=== PATIENT | female | born 1995 | race American Indian/Alaskan Native ===

== ENCOUNTER 2017-11-19 13:18 | Emergency (ER) | payer BC ==
[2017-11-19 13:25] VITALS: BP 139/75
[2017-11-19 13:50] LABS: HCG Qualitative,Urine Positive (Negative)
[2017-11-19 13:52] LABS: Bilirubin,Urine NEG (Negative); Blood,Urine MOD (Negative); Color,Urine Amber (Yellow); Mucus,Urine FEW /HPF; Protein,Urine <15 mg/dL mg/dL (Negative)
--- NOTE | 2017-11-19 13:54 | Emergency Department Report ---
ED HPI - General Chief complaint: Vaginal Bleeding Stated complaint: 10 WEEKS/SPOTTING Time Seen by Provider: 11/19/17 13:33 Source: patient Mode of arrival: Ambulatory Limitations: No Limitations - History of Present Illness Initial comments: This is a 32-year-old female nontoxic, well nourished in appearance, no acute signs of distress presents to the ED with c/o of vaginal bleeding x1 day. Patient stated yesterday she noticed some intermittent spotting for the past 2 weeks. Patient denies any heavy vaginal bleeding. Patient denies any abdominal or pelvic pain. Patient stated she is about 10 weeks . Patient denies seeing an END POLISHER. Patient denies any vaginal discharge or foul odor. Patient denies any nausea, vomiting, chest pain, shortness of breathe, fever, chills, headache, stiff neck, numbness, tingling. Patient denies any urinary symptoms. Patient stated allergies to Sulfa. Denies any PMH. MD Complaint: vaginal bleeding -: week(s) (2) Radiation: none Severity scale (0 -10): 0 Improves with: none Worsens with: none Associated symptoms: vaginal bleeding. denies: nausea/vomiting, vaginal discharge, abdominal pain, dysuria, headache, vision changes, malaise, dysparuenia, rash, seizure, shortness of breath, syncope, weakness Vaginal bleeding: light :: Yes Number of weeks : 10 Pre- care: none - Related Data Previous Rx's Medication Instructions Recorded Last Taken Type 21/Iron Fu/Folic Acid 1 each PO DAILY #30 tablet 11/19/17 Unknown Rx [ Complete Caplet] Allergies Allergy/AdvReac Type Severity Reaction Status Date / Time Sulfa (Sulfonamide Allergy Unknown Verified 11/19/17 13:25 Antibiotics) ED Review of Systems ROS: Stated complaint: 10 WEEKS/SPOTTING Other details as noted in HPI Constitutional: denies: chills, fever Eyes: denies: eye pain, eye discharge, vision change ENT: denies: ear pain, throat pain Respiratory: denies: cough, shortness of breath, wheezing Cardiovascular: denies: chest pain, palpitations Endocrine: no symptoms reported Gastrointestinal: denies: abdominal pain, nausea, diarrhea Genitourinary: abnormal menses. denies: urgency, dysuria, discharge Musculoskeletal: denies: back pain, joint swelling, arthralgia Skin: denies: rash, lesions Neurological: denies: headache, weakness, paresthesias Psychiatric: denies: anxiety, depression Hematological/Lymphatic: denies: easy bleeding, easy bruising ED Past Medical Hx - Past Medical History Previous Medical History?: No - Surgical History Past Surgical History?: Yes Additional Surgical History: tonsilectomy - Social History Smoking Status: Never Smoker Substance Use Type: None - Medications Home Medications: Home Medications Medication Instructions Recorded Confirmed Last Taken Type 21/Iron Fu/Folic Acid 1 each PO DAILY #30 tablet 11/19/17 Unknown Rx [ Complete Caplet] ED Physical Exam - General Limitations: No Limitations General appearance: alert, in no apparent distress - Head Head exam: Present: atraumatic, normocephalic - Eye Eye exam: Present: normal appearance Pupils: Present: normal accommodation - ENT ENT exam: Present: normal exam, mucous membranes moist - Neck Neck exam: Present: normal inspection, full ROM - Respiratory Respiratory exam: Present: normal lung sounds bilaterally. Absent: respiratory distress, wheezes, rales, rhonchi, stridor, chest wall tenderness, accessory muscle use, decreased breath sounds, prolonged expiratory - Cardiovascular Cardiovascular Exam: Present: regular rate, normal rhythm, normal heart sounds. Absent: irregular rhythm, systolic murmur, diastolic murmur, rubs, gallop - GI/Abdominal GI/Abdominal exam: Present: soft, normal bowel sounds. Absent: distended, tenderness, guarding, rebound, rigid, diminished bowel sounds - Rectal Rectal exam: Present: deferred - Extremities Exam Extremities exam: Present: normal inspection, full ROM, normal capillary refill - Back Exam Back exam: Present: normal inspection, full ROM. Absent: tenderness, CVA tenderness (R), CVA tenderness (L), muscle spasm, paraspinal tenderness, vertebral tenderness, rash noted - Neurological Exam Neurological exam: Present: alert, oriented X3, normal gait - Psychiatric Psychiatric exam: Present: normal affect, normal mood - Skin Skin exam: Present: warm, dry, intact, normal color. Absent: rash ED Course Vital Signs 11/19/17 13:21 Temperature 97.6 F Pulse Rate 92 H Respiratory 16 Rate Blood Pressure 139/75 O2 Sat by Pulse 100 Oximetry - Reevaluation(s) Reevaluation #1: 11/19/17 13:59 Patient is speaking in full sentences with no signs of distress noted. ED Medical Decision Making - Lab Data Result diagrams: 11/19/17 13:42 - Medical Decision Making This is a 22-year-old female presents with threatened miscarriage. Patient is stable and was examined by me. Normal abdominal exam. US OB obtained and dictated by the radiologist. Ua obtained. Quantative serum test obtained. Patient notified of the US report with no questions noted by the patient. RH factor negative. Patient received Rhogam in the ED. Labs within normal limits. Patient was referred to Follow-up with a END POLISHER in 3-5 days or if symptoms worsen and continue return to emergency room as soon as possible. At time of discharge, the patient does not seem toxic or ill in appearance. No acute signs of distress noted. Patient agrees to discharge treatment plan of care. No further questions noted by the patient. Critical care attestation.: If time is entered above; I have spent that time in minutes in the direct care of this critically ill patient, excluding procedure time. ED Disposition Clinical Impression: Threatened miscarriage Rh negative status during Qualifiers: Trimester: first trimester Qualified Code(s): O09.891 - Supervision of other high risk pregnancies, first trimester; Z67.91 - Unspecified blood type, Rh negative Disposition: DC-01 TO HOME OR SELFCARE Is pt being admited?: No Does the pt Need Aspirin: No Condition: Stable Instructions: Rho(D) Immune Globulin (Injection), (ED) Additional Instructions: Follow-up with a END POLISHER in 3-5 days or if symptoms worsen and continue return to emergency room as soon as possible. You have received Rhogam today in the ED. 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 Prescriptions: 21/Iron Fu/Folic Acid [ Complete Caplet] 1 each PO DAILY #30 tablet Referrals: PRIMARY CAREMD [Primary Care Provider] - 3-5 Days MARIUM DENNIS MD [Staff Physician] - 3-5 Days [facility] [Outside] - 3-5 Days [facility] [Provider Group] - 3-5 Days Forms: Work/School Release Form(ED)
[2017-11-19 14:01] LABS: Basophils # (Auto) 0.1 K/mm3 (0.0-0.1); Basophils % (Auto) 0.7 % (0.0-1.8); Eosinophils % (Auto) 0.3 % (0.0-4.3); Hematocrit 37.4 % (30.3-42.9); Hemoglobin 12.3 gm/dl (10.1-14.3); Lymphocytes # (Auto) 4.4 K/mm3 (1.2-5.4); Mean Corpuscular HGB Conc 33 % (30-34); Mean Corpuscular Hemoglobin 27 pg (28-32); Mean Corpuscular Volume 83 fl (79-97); Monocytes # (Auto) 0.9 K/mm3 (0.0-0.8); Monocytes % (Auto) 6.7 % (0.0-7.3); Platelet Count 437 K/mm3 (140-440); Red Blood Count 4.54 M/mm3 (3.65-5.03); Red Cell Distribution Width 15.8 % (13.2-15.2)
--- NOTE | 2017-11-19 15:01 | Ultrasound Report ---
ULTRASOUND PELVIC COMPLETE ULTRASOUND TRANSVAGINAL HISTORY: Vaginal bleeding. COMPARISON: None. TECHNIQUE: Transabdominal and transvaginal ultrasound with color doppler interrogation. FINDINGS: Uterus: 10 x 6 x 7 cm. No uterine masses identified. Normal cervix. Endometrium: An intrauterine gestational sac containing a fetus is identified. Heart rate measures 165 beats per minute. Estimated age of ultrasound is 10 weeks 2 days. Estimated due date of 06/17/18. Right ovary: 3.2 x 3.0 x 3.1 cm. A 2.1 cm simple cyst is noted in the right ovary. Left ovary: 2.9 x 1.8 x 2.2 cm. No focal abnormality. No pelvic fluid or mass is identified. Normal color doppler interrogation. IMPRESSION: Viable, single intrauterine as described. No acute abnormality is detected. 2.1 cm right ovarian cyst.
== END 2017-11-19 16:44 | disposition home or self-care (01) ==
LOC: ED 13:18
DX: O20.0 Threatened abortion (principal); O09.891 Supervision of other high risk pregnancies, first trimester; Z67.91 Unspecified blood type, Rh negative; Z3A.10 10 weeks gestation of pregnancy; Z90.89 Acquired absence of other organs; Z88.1 Allergy status to other antibiotic agents
CPT/HCPCS: 36415; 36430; 76801; 76817; 81001; 81025; 84702; 85025; 85461; 86850; 86900; 86901; 99284; J2790

== ENCOUNTER 2017-11-21 06:50 | Emergency (ER) | payer BC ==
[2017-11-21 07:40] LABS: Basophils # (Auto) 0.1 K/mm3 (0.0-0.1); Basophils % (Auto) 0.5 % (0.0-1.8); Eosinophils % (Auto) 0.1 % (0.0-4.3); Hematocrit 34.8 % (30.3-42.9); Hemoglobin 11.7 gm/dl (10.1-14.3); Lymphocytes # (Auto) 1.8 K/mm3 (1.2-5.4); Lymphocytes % (Auto) 11.3 % (13.4-35.0); Mean Corpuscular HGB Conc 34 % (30-34); Mean Corpuscular Hemoglobin 28 pg (28-32); Mean Corpuscular Volume 82 fl (79-97); Monocytes # (Auto) 0.8 K/mm3 (0.0-0.8); Monocytes % (Auto) 4.9 % (0.0-7.3); Platelet Count 439 K/mm3 (140-440); Red Blood Count 4.26 M/mm3 (3.65-5.03); Red Cell Distribution Width 15.7 % (13.2-15.2)
--- NOTE | 2017-11-21 07:48 | Emergency Department Report ---
ED Female HPI - General Chief complaint: Vaginal Bleeding Stated complaint: MISCARRIAGE Time Seen by Provider: 11/21/17 07:47 Source: patient Mode of arrival: Ambulatory Limitations: No Limitations - History of Present Illness MD Complaint: vaginal bleeding -: Gradual Location: perineum Radiation: suprapubic Severity: moderate Severity scale (0 -10): 6 Quality: cramping, dull Consistency: constant Improves with: none Worsens with: none Are you Now?: Yes Associated Symptoms: vaginal bleeding - Related Data Previous Rx's Medication Instructions Recorded Last Taken Type 21/Iron Fu/Folic Acid 1 each PO DAILY #30 tablet 11/19/17 Unknown Rx [ Complete Caplet] HYDROcodone/APAP 7.5-325 [[place] 1 each PO Q8HR PRN #10 tablet 11/21/17 Unknown Rx 7.5/325] Allergies Allergy/AdvReac Type Severity Reaction Status Date / Time Sulfa (Sulfonamide Allergy Unknown Verified 11/19/17 13:25 Antibiotics) ED Review of Systems ROS: Stated complaint: MISCARRIAGE Other details as noted in HPI Comment: All other systems reviewed and negative Constitutional: denies: chills, fever Eyes: denies: eye pain ENT: denies: ear pain, throat pain Respiratory: denies: cough, orthopnea, shortness of breath Cardiovascular: denies: chest pain, palpitations, dyspnea on exertion Endocrine: no symptoms reported Gastrointestinal: abdominal pain. denies: nausea, vomiting, diarrhea Genitourinary: denies: urgency, dysuria, frequency Musculoskeletal: denies: back pain, joint swelling Skin: denies: rash, lesions Neurological: denies: headache, weakness, numbness Psychiatric: denies: anxiety, depression Hematological/Lymphatic: denies: easy bleeding, easy bruising ED Past Medical Hx - Past Medical History Previous Medical History?: No - Surgical History Past Surgical History?: Yes Additional Surgical History: tonsilectomy - Social History Smoking Status: Current Every Day Smoker Substance Use Type: Alcohol - Medications Home Medications: Home Medications Medication Instructions Recorded Confirmed Last Taken Type 21/Iron Fu/Folic Acid 1 each PO DAILY #30 tablet 11/19/17 Unknown Rx [ Complete Caplet] HYDROcodone/APAP 7.5-325 [[place] 1 each PO Q8HR PRN #10 tablet 11/21/17 Unknown Rx 7.5/325] ED Physical Exam - General Limitations: No Limitations General appearance: alert, in no apparent distress - Head Head exam: Present: atraumatic, normocephalic, normal inspection - Eye Eye exam: Present: normal appearance, PERRL, EOMI Pupils: Present: normal accommodation - ENT ENT exam: Present: normal exam, normal orophraynx, mucous membranes moist - Neck Neck exam: Present: normal inspection, full ROM. Absent: tenderness - Respiratory Respiratory exam: Present: normal lung sounds bilaterally. Absent: respiratory distress, wheezes, rales, rhonchi, stridor - Cardiovascular Cardiovascular Exam: Present: regular rate, normal rhythm, normal heart sounds - GI/Abdominal GI/Abdominal exam: Present: soft, normal bowel sounds. Absent: distended, tenderness, guarding, rebound, rigid - External exam: Present: normal external exam, bleeding. Absent: lacerations Speculum exam: Present: vaginal bleeding, other (Blood clots in the vaginal vault.). Absent: vaginal discharge, tissue, laceration Bi-manual exam: Present: normal bi-manual exam, other (Marthaone was Ms. Apple RN.) - Extremities Exam Extremities exam: Present: normal inspection, full ROM, normal capillary refill. Absent: tenderness, pedal edema - Back Exam Back exam: Present: normal inspection, full ROM. Absent: tenderness, CVA tenderness (R), CVA tenderness (L) - Neurological Exam Neurological exam: Present: alert, oriented X3, CN II-XII intact - Psychiatric Psychiatric exam: Present: normal affect, normal mood - Skin Skin exam: Present: warm, dry, intact, normal color. Absent: rash ED Course Vital Signs 11/21/17 11/21/17 11/21/17 06:52 11:00 13:00 Temperature 98.3 F 97.9 F 98.2 F Pulse Rate 79 78 82 Respiratory 21 15 19 Rate Blood Pressure 120/62 Blood Pressure 120/84 125/84 [Right] O2 Sat by Pulse 100 100 99 Oximetry - Reevaluation(s) Reevaluation #1: 11/21/17 15:13 I consulted the NECKTIE TURNER doctor injury prevention coordinator Dr. Montoya. He recommend discharging the patient home to follow up with his outpatient clinic. He also ordered Cytotec 1000 mg per rectum and Rhogam. ED Medical Decision Making - Lab Data Result diagrams: 11/21/17 07:17 11/21/17 07:17 - Radiology Data Radiology results: report reviewed, image reviewed - Medical Decision Making Spontaneous Miscarriage. Critical care attestation.: If time is entered above; I have spent that time in minutes in the direct care of this critically ill patient, excluding procedure time. ED Disposition Clinical Impression: Incomplete miscarriage with blood clot, Vaginal bleeding before 22 weeks gestation, Spontaneous miscarriage Rh negative status during Qualifiers: Trimester: first trimester Qualified Code(s): O09.891 - Supervision of other high risk pregnancies, first trimester Disposition: - TO HOME OR SELFCARE Is pt being admited?: No Does the pt Need Aspirin: No Condition: Stable Instructions: Spontaneous Miscarriage (ED) Additional Instructions: Please follow up with Dr Montoya tomorrow morning in his out patient clinic. Return to the ED if your condition worsens. Prescriptions: HYDROcodone/APAP 7.5-325 [[place] 7.5/325] 1 each PO Q8HR PRN #10 tablet PRN Reason: Pain Referrals: PRIMARY CAREMD [Primary Care Provider] - 3-5 Days JAD MONTOYA MD [Staff Physician] - 3-5 Days Forms: Work/School Release Form(ED) Time of Disposition: 14:15
[2017-11-21 07:51] LABS: INR 0.96 (0.87-1.13); Partial Thromboplastin Time 29.2 Sec. (24.2-36.6)
[2017-11-21] MEDS ORDERED: SUBLIMAZE IV ONE (07:56)
[2017-11-21] MEDS ORDERED: NACL 0.9% 1000 ML 1,000 ML IV ONE (07:56)
[2017-11-21 08:36] LABS: Alanine Aminotransferase 9 units/L (7-56); Albumin 4.3 g/dL (3.9-5); BUN/Creatinine Ratio 9; Blood Urea Nitrogen 6 mg/dL (7-17); Calcium 9.6 mg/dL (8.4-10.2); Hemolysis Index 0
--- NOTE | 2017-11-21 10:24 | Ultrasound Report ---
FINAL REPORT EXAM: US OB < = 14 WEEKS FETUS HISTORY: TECHNIQUE: Transabdominal OB ultrasound. PRIORS: OB ultrasound November 19, 2017. FINDINGS: Uterus: 9.8 x 5.6 x 6.1 cm. Thickened endometrium measures 31.4 mm with heterogeneous appearance. Previously seen intrauterine is no longer evident. Right ovary: 2.8 x 2.1 x 2.3 cm. Cyst measures 1.5 cm. Left Ovary: Not visualized. Adnexal: Unremarkable. Minimal free fluid. IMPRESSION: Comparison with prior will be made as an addendum once requested prior images and report are provided. Suspect miscarriage. Heterogeneous appearance to the uterus may represent blood. Functional cyst in the right ovary appears smaller compared to prior. Left ovary not visualized.
[2017-11-21] MEDS ORDERED: CYTOTEC PR ONE (13:00)
[2017-11-21 15:28] VITALS: BP 122/70
== END 2017-11-21 15:10 | disposition home or self-care (01) ==
LOC: ED 06:50
DX: O03.30 Unspecified complication following incomplete spontaneous abortion (principal); O99.332 Smoking (tobacco) complicating pregnancy, second trimester; Z90.89 Acquired absence of other organs; Z88.2 Allergy status to sulfonamides; Z3A.22 22 weeks gestation of pregnancy
CPT/HCPCS: 36415; 76801; 80053; 84702; 85025; 85610; 85730; 86850; 86870; 86900; 86901; 87210; 87591; 88305; 96374; 99284; J3010; J7030; 96361